=== PATIENT | male | born 1950 | race Caucasian/White ===

== ENCOUNTER → 2021-06-09 10:24 | Outpatient (BNVA) | payer OTHER, SELFPAY | PROVIDERS: Visit Provider Family Medicine | DX: E11.9 Type 2 diabetes mellitus without complications (principal); I10 Essential (primary) hypertension; R35.1 Nocturia; E78.5 Hyperlipidemia, unspecified; J44.9 Chronic obstructive pulmonary disease, unspecified; C61 Malignant neoplasm of prostate | CPT/HCPCS: 80053; 80061; 82043; 84153; 85025 ==

== ENCOUNTER → 2021-06-13 12:11 | Outpatient (BNVA) | payer OTHER, SELFPAY | PROVIDERS: Visit Provider Family Medicine | DX: E11.9 Type 2 diabetes mellitus without complications (principal); I10 Essential (primary) hypertension; R80.9 Proteinuria, unspecified | CPT/HCPCS: 83036; 85025 ==

== ENCOUNTER 2021-06-15 08:54 | Outpatient (CLI) | payer OTHER, SELFPAY ==
[2021-06-15 10:15] LABS: Microalbumin Result 100.2 mg/dL
[2021-06-15 10:24] LABS: Microalbumin 24 Hour Result 2204 mg/24HR (0-30); Microalbumin Total Volume 2200 mL
== END 2021-06-15 08:55 | disposition home or self-care (01) ==
PROVIDERS: PCP Family Medicine; Visit Provider Family Medicine
DX: R80.9 Proteinuria, unspecified (principal)
CPT/HCPCS: 82043

== ENCOUNTER → 2021-09-01 09:29 | Outpatient (BNVA) | payer OTHER, SELFPAY | PROVIDERS: PCP Family Medicine; Visit Provider Family Medicine | DX: E11.9 Type 2 diabetes mellitus without complications (principal); I10 Essential (primary) hypertension; E78.5 Hyperlipidemia, unspecified | CPT/HCPCS: 80048 ==

== ENCOUNTER 2021-09-08 09:07 | Outpatient (CLI) | payer OTHER, SELFPAY ==
--- NOTE | 2021-09-08 10:15 | US_ITS ---
WS: [id number] RENAL ULTRASOUND HISTORY: proteinuria COMPARISON: None available. TECHNIQUE: 2-D and color Doppler imaging of the kidney submitted. Right kidney: 10.6 cm x 4.5 cm x 5.4 cm. Normal echogenicity with no hydronephrosis or mass. Left kidney: 11.1 cm x 5.2 cm x 6.5 cm. Normal size kidney. There is a large exophytic simple cyst from the mid kidney measuring 5.2 x 6.0 x 5.3 cm. No septation or solid component. No solid mass LEFT kidney. No obstruction. Aorta: Normal. Urinary Bladder: Normally distended bladder. No intraluminal filling defect. Very mild lobulation and heterogeneity within the prostate gland. US/US renal BI* [id number] IMPRESSION: 1. No hydronephrosis or solid mass. 2. Large LEFT renal cyst. 3. Minimally heterogeneous prostate gland.
== END 2021-09-08 09:08 | disposition home or self-care (01) ==
PROVIDERS: PCP Family Medicine; Visit Provider Family Medicine
DX: R80.9 Proteinuria, unspecified (principal); N28.1 Cyst of kidney, acquired; N40.0 Benign prostatic hyperplasia without lower urinary tract symptoms
CPT/HCPCS: 76770

== ENCOUNTER → 2021-09-28 11:27 | Outpatient (BNVA) | payer OTHER, SELFPAY | PROVIDERS: PCP Family Medicine; Visit Provider Family Medicine | DX: N18.32 Chronic kidney disease, stage 3b (principal) | CPT/HCPCS: 80048 ==

== ENCOUNTER 2021-12-15 07:53 | Outpatient (CLI) | payer MEDICARE, SELFPAY ==
[2021-12-15 09:26] LABS: Prostate Specific AG Urology 6.52 ng/mL (0-4)
== END 2021-12-15 07:54 | disposition home or self-care (01) ==
PROVIDERS: PCP Family Medicine; Visit Provider Urology
DX: C61 Malignant neoplasm of prostate (principal); N28.1 Cyst of kidney, acquired; R35.1 Nocturia
CPT/HCPCS: 51741; 51798; G0463; 36415; 81003; 84153

== ENCOUNTER → 2022-01-26 10:19 | Outpatient (BNVA) | payer MEDICARE, SELFPAY | PROVIDERS: PCP Family Medicine; Visit Provider Family Medicine | DX: E11.22 Type 2 diabetes mellitus with diabetic chronic kidney disease (principal); N18.32 Chronic kidney disease, stage 3b; I10 Essential (primary) hypertension; K86.89 Other specified diseases of pancreas | CPT/HCPCS: 80053; 83036 ==

== ENCOUNTER 2022-05-10 12:08 | Outpatient (CLI) | payer MEDICARE, SELFPAY ==
[2022-05-10 14:05] LABS: Prostate Specific AG Urology 7.62 ng/mL (0-4)
== END 2022-05-10 12:09 | disposition home or self-care (01) ==
LOC: LAB 12:10
PROVIDERS: PCP Family Medicine; Visit Provider Urology
DX: C61 Malignant neoplasm of prostate (principal)
CPT/HCPCS: 36415; 84153

== ENCOUNTER → 2022-05-16 13:53 | Outpatient (BNVA) | payer MEDICARE, SELFPAY | PROVIDERS: PCP Family Medicine; Visit Provider Urology | DX: C61 Malignant neoplasm of prostate (principal); N28.1 Cyst of kidney, acquired | CPT/HCPCS: 81003; 99213 ==

== ENCOUNTER → 2022-07-27 11:04 | Outpatient (BNVA) | payer MEDICARE, SELFPAY | PROVIDERS: PCP Family Medicine; Visit Provider Family Medicine | DX: I10 Essential (primary) hypertension (principal); E11.22 Type 2 diabetes mellitus with diabetic chronic kidney disease; E78.5 Hyperlipidemia, unspecified; K86.89 Other specified diseases of pancreas; N18.32 Chronic kidney disease, stage 3b; E11.9 Type 2 diabetes mellitus without complications | CPT/HCPCS: 80053; 80061; 82043; 83036; 85025 ==

== ENCOUNTER 2022-08-16 09:04 | Outpatient (CLI) | payer MEDICARE, SELFPAY ==
--- NOTE | 2022-08-16 09:30 | MR_ITS ---
WS: [id number] MRI/MRCP OF THE ABDOMEN WITHOUT GADOLINIUM ENHANCEMENT TECHNIQUE: Coronal T2 Fase BH, Axial T2 Fase BH, Axial T2 FS BH, Zxial 3D Patricio BH, Axial DWI BH, 2D MRCP Radial BH, 3D MRCP (Resp), and Axial 3D Dyn BH Post sequences. CLINICAL INFORMATION: Pancreatic mass COMPARISON: Lung screening CT [address] abdominal imaging. FINDINGS: Some images degraded by breathing artifact. No hydronephrosis in either kidney. Adrenal glands are no rmal. LEFT renal cortical cyst measuring 6.1 x 5.3 cm. Normal caliber abdominal aorta. Celiac and SMA appear patent. Slightly ectatic distal abdominal aorta measuring 2.2 x 1.9 CM. Pancreas is normal in appearance. Normal pancreatic head. No evidence of pancreatic duct dilatation. No evidence of mass or lesion in the pancreas. Liver is normal in appearance. Portal vein and splenic vein appear patent. No intrahepatic biliary duct dilatation. Normal visualized common bile duct. Gal lbladder appears normal. Tiny esophageal hiatal hernia. Normal partially visualized spleen. No adenop athy in the upper abdomen. MR/MR abdomen wo con [id number] Impression: 1. No evidence of mass in the pancreas. No evidence of pancreatic head lesion. No pancreatic ductal dilatation. 2. Normal gallbladder. No intrahepatic biliary duct dilatation. 3. Normal common bile duct. 4. Normal liver. 5. LEFT renal cortical cyst measuring 5.3 x 6.1 CM. 6. No hydronephrosis in either kidney. 7. Slightly ectatic distal abdominal aorta measuring 2.2 x 1.9 cm.
== END 2022-08-16 09:05 | disposition home or self-care (01) ==
LOC: RAD 09:05
PROVIDERS: PCP Family Medicine; Visit Provider Family Medicine
DX: K86.89 Other specified diseases of pancreas (principal)
CPT/HCPCS: 74181

== ENCOUNTER 2022-08-29 12:09 | Outpatient (CLI) | payer MEDICARE, SELFPAY ==
[2022-08-29 13:08] LABS: Prostate Specific AG Urology 9.95 ng/mL (0-4)
== END 2022-08-29 12:10 | disposition home or self-care (01) ==
PROVIDERS: PCP Family Medicine; Visit Provider Urology
DX: R97.20 Elevated prostate specific antigen [PSA] (principal)
CPT/HCPCS: 84153

== ENCOUNTER → 2022-09-07 08:57 | Outpatient (BNVA) | payer MEDICARE, SELFPAY | PROVIDERS: PCP Family Medicine; Visit Provider Urology | DX: C61 Malignant neoplasm of prostate (principal); R97.20 Elevated prostate specific antigen [PSA]; N28.1 Cyst of kidney, acquired | CPT/HCPCS: 99213 ==

== ENCOUNTER 2022-10-16 09:49 | Outpatient (CLI) | payer MEDICARE, SELFPAY ==
[2022-10-16 10:26] LABS: Basophils % 0.6 %; Eosinophils # 0.2 10^3/uL (0.0-0.8); Eosinophils % 2.8 %; Hematocrit 42.4 % (42.0-52.0); Hemoglobin 13.8 g/dL (11.7-16.6); Lymphocytes # 1.9 10^3/uL (0.8-4.8); Lymphocytes % 30.2 %; Mean Corpuscular HGB Conc 32.5 g/dL (30.0-36.0); Mean Corpuscular Volume 92.2 fl (80-94); Mean Platelet Volume 9.8 fL (7.4-10.4); Monocytes # 0.5 10^3/uL (0.2-0.9); Monocytes % 8.2 %; Neutrophils # 3.66 10^3/uL (1.8-7.7); Nucleated Red Blood Cells % 0 %; Platelet Count 234 10^3/cmm (130-400); Red Cell Distribution Width 12.9 % (12.1-15.1); White Blood Count 6.3 10^3/uL (4.0-10.0)
[2022-10-16 10:51] LABS: Parathyroid Hormone 33.3 pg/mL (15-65)
[2022-10-16 10:57] LABS: Creatinine Urine, Random 78 mg/dL (39-259)
[2022-10-16 11:01] LABS: 25 Hydroxy Vitamin D 37 ng/mL (30-100); Albumin Level 4.3 g/dL (3.5-5.2); Anion Gap 17.6 (5-19); Blood Urea Nitrogen 36 mg/dL (8-23); Carbon Dioxide 24 mmol/L (22-29); Chloride 104 mmol/L (98-107); Glomerular Filtration Rate 37.5 mL/min (90-130); Glucose 145 mg/dL (65-115); Phosphorus 3.9 mg/dL (2.5-4.5); Potassium 4.6 mmol/L (3.5-5.1); Sodium 141 mmol/L (136-145)
[2022-10-16 11:09] LABS: Microalbum Creatinine Ratio Ur 487 mg/dL (0-20); Microalbumin Random Urine 38 ug/dL (0-20)
== END 2022-10-16 09:50 | disposition home or self-care (01) ==
PROVIDERS: PCP Family Medicine; Visit Provider Internal Medicine Nephrology
DX: N18.32 Chronic kidney disease, stage 3b (principal); N25.81 Secondary hyperparathyroidism of renal origin
CPT/HCPCS: 36415; 80069; 82044; 82306; 82310; 83970; 85025

== ENCOUNTER → 2023-02-19 09:01 | Outpatient (BNVA) | payer MEDICARE, SELFPAY | PROVIDERS: PCP Family Medicine; Visit Provider Family Medicine | DX: E11.22 Type 2 diabetes mellitus with diabetic chronic kidney disease (principal); N18.32 Chronic kidney disease, stage 3b | CPT/HCPCS: 83036 ==

== ENCOUNTER 2023-04-18 08:13 | Outpatient (CLI) | payer MEDICARE, SELFPAY ==
[2023-04-18 08:45] LABS: Basophils # 0.1 10^3/uL (0.0-0.1); Basophils % 0.8 %; Eosinophils # 0.3 10^3/uL (0.0-0.8); Eosinophils % 4.1 %; Lymphocytes # 1.9 10^3/uL (0.8-4.8); Lymphocytes % 29.7 %; Mean Corpuscular HGB Conc 33.6 g/dL (30-55); Mean Corpuscular Hemoglobin 30.4 pg (27-33); Mean Corpuscular Volume 90.5 fl (82-101); Mean Platelet Volume 10.2 fL (7.4-10.4); Monocytes # 0.7 10^3/uL (0.2-0.9); Monocytes % 10.4 %; Neutrophils % 54.8 %; Nucleated Red Blood Cells % 0 %; Platelet Count 213 10^3/cmm (157-399); Red Blood Count 4.64 10^6/uL (3.85-5.65); Red Cell Distribution Width 13.7 % (12.1-15.1); White Blood Count 6.37 10^3/uL (3.29-11.43)
[2023-04-18 08:50] LABS: Albumin Level 4.4 g/dL (3.5-5.2); Anion Gap 17.3 (5-19); Blood Urea Nitrogen 37 mg/dL (8-23); Calcium 9.2 mg/dL (8.5-10.5); Carbon Dioxide 23 mmol/L (22-29); Chloride 102 mmol/L (98-107); Glomerular Filtration Rate 31.4 mL/min (90-130); Glucose 201 mg/dL (65-115); Phosphorus 4.3 mg/dL (2.5-4.5); Potassium 4.3 mmol/L (3.5-5.1); Sodium 138 mmol/L (136-145)
[2023-04-18 08:54] LABS: Calcium 9.1 mg/dL (8.5-10.5)
[2023-04-18 08:57] LABS: Creatinine Urine, Random 113 mg/dL (39-259); Microalbumin Random Urine 37 ug/dL (0-20)
[2023-04-18 08:58] LABS: Microalbum Creatinine Ratio Ur 327 mg/dL (0-20)
== END 2023-04-18 08:14 | disposition home or self-care (01) ==
LOC: LAB 08:14
PROVIDERS: PCP Family Medicine; Visit Provider Registered Nurse
DX: N18.32 Chronic kidney disease, stage 3b (principal)
CPT/HCPCS: 36415; 80069; 82044; 82310; 83970; 85025

== ENCOUNTER → 2023-08-02 09:51 | Outpatient (BNVA) | payer MEDICARE, SELFPAY | PROVIDERS: PCP Family Medicine; Visit Provider Family Medicine | DX: E11.22 Type 2 diabetes mellitus with diabetic chronic kidney disease (principal); N18.32 Chronic kidney disease, stage 3b; E78.5 Hyperlipidemia, unspecified | CPT/HCPCS: 80048; 80061; 83036 ==

== ENCOUNTER 2023-10-26 10:24 | Outpatient (CLI) | payer MEDICARE, SELFPAY ==
[2023-10-26 11:20] LABS: Basophils % 0.6 %; Eosinophils # 0.1 10^3/uL (0.0-0.8); Eosinophils % 2.6 %; Hematocrit 40.8 % (37-53); Lymphocytes # 1.1 10^3/uL (0.8-4.8); Lymphocytes % 22.2 %; Mean Corpuscular HGB Conc 34.6 g/dL (30-55); Mean Corpuscular Hemoglobin 30.7 pg (27-33); Mean Corpuscular Volume 88.9 fl (82-101); Mean Platelet Volume 9.7 fL (7.4-10.4); Monocytes # 0.7 10^3/uL (0.2-0.9); Neutrophils # 2.97 10^3/uL (1.8-7.7); Neutrophils % 60.4 %; Nucleated Red Blood Cells % 0 %; Platelet Count 230 10^3/cmm (157-399); Red Blood Count 4.59 10^6/uL (3.85-5.65); Red Cell Distribution Width 12.5 % (12.1-15.1); White Blood Count 4.92 10^3/uL (3.29-11.43)
[2023-10-26 11:44] LABS: Albumin Level 4.2 g/dL (3.5-5.2); Anion Gap 18.1 (5-19); Blood Urea Nitrogen 41 mg/dL (8-23); Calcium 8.6 mg/dL (8.5-10.5); Carbon Dioxide 23 mmol/L (22-29); Chloride 101 mmol/L (98-107); Glucose 157 mg/dL (65-115); Phosphorus 4.3 mg/dL (2.5-4.5); Potassium 4.1 mmol/L (3.5-5.1); Sodium 138 mmol/L (136-145)
[2023-10-26 11:48] LABS: Creatinine Urine, Random 62 mg/dL (39-259); Microalbum Creatinine Ratio Ur 323 mg/dL (0-20); Microalbumin Random Urine 20 ug/dL (0-20)
[2023-10-26 11:58] LABS: Calcium 8.5 mg/dL (8.5-10.5)
[2023-10-26 12:05] LABS: Parathyroid Hormone 30.6 pg/mL (15-65)
== END 2023-10-26 10:25 | disposition home or self-care (01) ==
LOC: LAB 10:25
PROVIDERS: PCP Family Medicine; Visit Provider Registered Nurse
DX: N18.32 Chronic kidney disease, stage 3b (principal)
CPT/HCPCS: 36415; 80069; 82044; 82310; 83970; 85025

== ENCOUNTER 2023-11-12 13:20 | Outpatient (CLI) | payer MEDICARE, SELFPAY ==
[2023-11-12 14:00] LABS: Albumin Level 4.1 g/dL (3.5-5.2); Anion Gap 16.4 (5-19); Blood Urea Nitrogen 40 mg/dL (8-23); Calcium 8.8 mg/dL (8.5-10.5); Carbon Dioxide 24 mmol/L (22-29); Chloride 105 mmol/L (98-107); Glucose 186 mg/dL (65-115); Phosphorus 3.6 mg/dL (2.5-4.5); Potassium 4.4 mmol/L (3.5-5.1); Sodium 141 mmol/L (136-145)
== END 2023-11-12 13:21 | disposition home or self-care (01) ==
LOC: LAB 13:23
PROVIDERS: PCP Family Medicine; Visit Provider Family Medicine
DX: N18.32 Chronic kidney disease, stage 3b (principal)
CPT/HCPCS: 80069

== ENCOUNTER 2024-02-01 12:12 | Outpatient (CLI) | payer MEDICARE, SELFPAY ==
[2024-02-01 12:38] LABS: Basophils # 0.1 10^3/uL (0.0-0.1); Basophils % 0.6 %; Eosinophils # 0.1 10^3/uL (0.0-0.8); Eosinophils % 0.9 %; Hematocrit 41.6 % (37-53); Lymphocytes # 1.2 10^3/uL (0.8-4.8); Mean Corpuscular HGB Conc 33.7 g/dL (30-55); Mean Corpuscular Hemoglobin 30.6 pg (27-33); Mean Corpuscular Volume 90.8 fl (82-101); Mean Platelet Volume 9.6 fL (7.4-10.4); Monocytes # 0.5 10^3/uL (0.2-0.9); Neutrophils # 6.61 10^3/uL (1.8-7.7); Nucleated Red Blood Cells % 0 %; Platelet Count 266 10^3/cmm (157-399); Red Blood Count 4.58 10^6/uL (3.85-5.65); Red Cell Distribution Width 13.4 % (12.1-15.1); White Blood Count 8.48 10^3/uL (3.29-11.43)
[2024-02-01 12:59] LABS: Creatinine Urine, Random 121 mg/dL (39-259); Microalbumin Random Urine 39 ug/dL (0-20)
[2024-02-01 13:00] LABS: Microalbum Creatinine Ratio Ur 322 mg/dL (0-20)
[2024-02-01 13:01] LABS: Albumin Level 4.5 g/dL (3.5-5.2); Anion Gap 20.4 (5-19); Blood Urea Nitrogen 48 mg/dL (8-23); Carbon Dioxide 22 mmol/L (22-29); Chloride 100 mmol/L (98-107); Glucose 206 mg/dL (65-115); Phosphorus 3.6 mg/dL (2.5-4.5); Potassium 4.4 mmol/L (3.5-5.1); Sodium 138 mmol/L (136-145)
[2024-02-01 13:03] LABS: Calcium 8.9 mg/dL (8.5-10.5)
[2024-02-01 13:10] LABS: Parathyroid Hormone 73.5 pg/mL (15-65)
[2024-02-01 13:15] LABS: 25 Hydroxy Vitamin D 40 ng/mL (30-100)
== END 2024-02-01 12:13 | disposition home or self-care (01) ==
LOC: LAB 12:16
PROVIDERS: PCP Family Medicine; Visit Provider Internal Medicine
DX: N18.32 Chronic kidney disease, stage 3b (principal)
CPT/HCPCS: 80069; 82044; 82306; 82310; 83970; 85025

== ENCOUNTER 2024-06-03 09:11 | Outpatient (CLI) | payer MEDICARE, SELFPAY ==
[2024-06-03 09:50] LABS: Basophils # 0.1 10^3/uL (0.0-0.1); Basophils % 0.8 %; Eosinophils # 0.1 10^3/uL (0.0-0.8); Eosinophils % 2.3 %; Hematocrit 42.9 % (37-53); Lymphocytes # 1.2 10^3/uL (0.8-4.8); Lymphocytes % 19.7 %; Mean Corpuscular HGB Conc 32.6 g/dL (30-55); Mean Corpuscular Hemoglobin 29.7 pg (27-33); Mean Corpuscular Volume 91.1 fl (82-101); Mean Platelet Volume 10.2 fL (7.4-10.4); Monocytes # 0.6 10^3/uL (0.2-0.9); Monocytes % 9.1 %; Neutrophils # 4.16 10^3/uL (1.8-7.7); Neutrophils % 67.8 %; Nucleated Red Blood Cells % 0 %; Platelet Count 220 10^3/cmm (157-399); Red Blood Count 4.71 10^6/uL (3.85-5.65); Red Cell Distribution Width 13.1 % (12.1-15.1); White Blood Count 6.14 10^3/uL (3.29-11.43)
[2024-06-03 10:13] LABS: Creatinine Urine, Random 90 mg/dL (39-259); Microalbumin Random Urine 33 ug/dL (0-20)
[2024-06-03 10:15] LABS: Microalbum Creatinine Ratio Ur 367 mg/dL (0-20)
[2024-06-03 10:25] LABS: Calcium 9.1 mg/dL (8.5-10.5); Parathyroid Hormone 52.3 pg/mL (15-65)
[2024-06-03 10:35] LABS: 25 Hydroxy Vitamin D 29 ng/mL (30-100); Albumin Level 4.1 g/dL (3.5-5.2); Blood Urea Nitrogen 43 mg/dL (8-23); Carbon Dioxide 22 mmol/L (22-29); Chloride 102 mmol/L (98-107); Glucose 184 mg/dL (65-115); Phosphorus 4.2 mg/dL (2.5-4.5); Sodium 136 mmol/L (136-145)
[2024-06-03 10:42] LABS: Anion Gap 16.4 (5-19); Potassium 4.4 mmol/L (3.5-5.1)
== END 2024-06-03 09:12 | disposition home or self-care (01) ==
PROVIDERS: PCP Family Medicine; Visit Provider Internal Medicine
DX: N18.32 Chronic kidney disease, stage 3b (principal)
CPT/HCPCS: 36415; 80069; 82044; 82306; 82310; 83970; 85025

== ENCOUNTER 2024-06-18 08:14 | Inpatient (IN) | payer OTHER, MEDICARE, SELFPAY ==
[2024-06-18] VITALS (15 sets, daily range): BP systolic 134–163; BP diastolic 82–96; PULSE 82–101; RESP 16–18; TEMP 36.6–36.9; O2SAT 94–98; BMI 25.1
--- NOTE | 2024-06-18 08:18 | ECG_ITS ---
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 Measurements Intervals [place] Rate: 89 P: 71 AR: 178 QRS: 70 QRSD: 138 T: 38 QT: 380 QTc: 462 Interpretive Statements SINUS RHYTHM RIGHT BUNDLE BRANCH BLOCK [120+ ms QRS DURATION, UPRIGHT V1, 40+ ms S IN I/aVL/V4/V5/V6] No previous ECG available for comparison Electronically Signed On 06-21-2024 23:14:40 ELEVATOR TENDER by Kevan Jaime M.D. [id number]
--- NOTE | 2024-06-18 08:18 | CT_ITS ---
WS: [id number] CT HEAD NONCONTRAST HISTORY: Symptoms of acute stroke TECHNIQUE: Contiguous axial imaging performed through the brain. Bone and soft tissue windows. Sagitt al and coronal reformats reviewed. All CT scans at [facility] use at least one of these dose optimization techniques: automated exposure control; mA and/or kV adjustment per patient size (includ es targeted exams where dose is matched to clinical indication); or iterative reconstruction. DLP: 1087.79 mGy COMPARISON: None available. No acute intracranial hemorrhage, midline shift or mass effect. Large subacute to remote infarct in the LEFT occipital lobe. Mild mass effect and edema and effacemen t of the adjacent sulci suggesting this is likely a subacute stroke. Additional area of decreased att enuation in the RIGHT temporal lobe. Moderate bilateral cerebral atrophy. Ventricles: No ventriculomegaly. Mild effacement LEFT lateral ventricle occipital horn due to the adj acent subacute infarct. No inferior displacement of the cerebellar tonsils. Paranasal sinuses: As visualized are clear. Mastoid air cells: Well pneumatized. Calvarium and scalp: Skull is intact with no soft tissue edema or swelling. CT/CT head thrombolytic [id number] IMPRESSION: 1. No acute intracranial hemorrhage or edema. 2. Findings most consistent with a large subacute infarct involving the LEFT o ccipital lobe. 3. Focal decreased attenuation RIGHT temporal lobe may be small vessel disease or prior infarct. 4. Otherwise mild cerebral atrophy and small vessel disease. Notified Evans Frey DO at 06/18/2024 9:04 AM.
--- NOTE | 2024-06-18 08:21 | ED_ITS ---
HPI - Neuro Symptoms/Deficit 2 General: Chief Complaint: Neuro Symptoms/Deficit Stated Complaint: poss stroke Time Seen by Provider: 06/18/24 08:17 History of Present Illness: 74-year-old male presents emergency room 48 hours after onset of blurred vision weakness and some visual receptive aphasia. Initially began 2 days ago. It is persistent he is also difficulty with word finding and with some confusion. He has not any difficulty with gait or swallowing. Associated symptoms: Deny chest pain Related Data Home Medications Medication Instructions Recorded Confirmed aspirin 81 mg tablet,delayed 81 mg PO DAILY 06/09/21 06/18/24 release albuterol sulfate 90 mcg/actuation 2 inh inhalation Q4H PRN Shortness 06/18/24 06/18/24 breath activated powder inhaler Of Breath Or Wheezing amlodipine 10 mg tablet 10 mg PO DAILY 06/18/24 06/18/24 atorvastatin 40 mg tablet 40 mg PO QPM 06/18/24 06/18/24 empagliflozin 25 mg tablet 25 mg PO DAILY 06/18/24 06/18/24 glimepiride 4 mg tablet 4 mg PO QAM 06/18/24 06/18/24 hydrochlorothiazide 25 mg tablet 25 mg PO DAILY 06/18/24 06/18/24 sitagliptin 50 mg tablet (Zituvio) 50 mg PO DAILY 06/18/24 06/18/24 tiotropium bromide 2.5 2 puff inhalation DAILY 06/18/24 06/18/24 mcg/actuation mist for inhalation (Spiriva Respimat) Previous Rx's Medication Instructions Recorded blood sugar diagnostic (Blood #50 ea 07/27/22 Glucose Test strips) blood-glucose meter #1 ea 07/27/22 lancets 25 gauge #100 ea 07/27/22 losartan 50 mg tablet 50 mg PO DAILY #90 tabs 08/02/23 linagliptin 5 mg tablet (Tradjenta) 5 mg PO QAM #100 tabs 08/17/23 clopidogrel 75 mg tablet 75 mg PO DAILY #30 tabs 06/19/24 Allergies Allergy/AdvReac Type Severity Reaction Status Date / Time azithromycin Allergy Severe ALGY-Swell Verified 11/09/23 09:03 Lip/Tongue/Throat Fish Containing Products Allergy Mild ALGY-Swell Verified 11/09/23 09:03 Lip/Tongue/Throat Penicillins Allergy Mild ALGY-Hives Verified 11/09/23 09:03 Review of Systems 2 Const: Denies: fever(s) or chills Card: Denies: chest pain Resp: Denies: dyspnea GI: Denies: abdominal pain : Denies: dysuria, urinary frequency or urinary urgency Musc: Denies: neck pain or back pain Skin/Breast: Denies: rash PFSH ED 2 PFSH: Medical History Secondary hyperparathyroidism (of renal origin) Renal cyst Left lower pole. Almost 6 cm. Benign simple characteristics. No further work-up indicated Pancreatic mass Stage 3b chronic kidney disease (CKD) Dyslipidemia Prostate cancer Type 2 diabetes mellitus COPD (chronic obstructive pulmonary disease) Benign essential HTN Surgical History History of surgical removal of skin lesion Family History Mother , AT AGE 69 Thyroid disease Father , AT AGE 65 Cancer lung Social History Smoking and tobacco/nicotine status: former use of tobacco/nicotine Quit status (tobacco/nicotine): has quit using Second hand smoke exposure: Yes Alcohol intake: current Alcohol intake frequency: few times a week Substance/Drug Use: never Marital status: Life Partner Current occupational status: retired NIH stroke score 2 NIHSS: Level Of Consciousness - 1a: 0 Level Of Consciousness Questions - 1b: Both Correct Level Of Consciousness Commands - 1c: Both Correct Best Gaze - 2: Normal Visual Mckeon - 3: Complete Hemianopia Facial Palsy - 4: Normal Motor Arm Right - 5: No Drift Motor Arm Left - 5: No Drift Motor Leg Right - 6: No Drift Motor Leg Left - 6: No Drift Limb Ataxia - 7: A bsent Sensory - 8: Normal Best Language - 9: No Aphasia Dysarthia - 10: Normal Extinction And Inattention - 11: 0 Score: Total Score: 2 Physical Exam 2 Const: GENERAL APPEARANCE: cooperative ORIENTATION/CONSCIOUSNESS: Yes awake, Yes oriented to person, Yes oriented to place and Yes oriented to time HENMT: COMMON NORMALS: normocephalic, atraumatic and hearing grossly normal bilaterally HEAD & SCALP: normocephalic and atraumatic Resp: COMMON NORMALS: normal respiratory effort, No retractions, No use of accessory muscles and clear to auscultation bilaterally AUSCULTATION: clear to auscultation bilaterally Cardio: COMMON NORMALS: regular rate, regular rhythm and No murmurs present (Cardio) RATE: regular rate RHYTHM: regular rhythm GI: COMMON NORMALS: Soft to palpation and No hepatosplenomegaly present A USCULTATION: Yes normoactive bowel sounds PALPATION: Yes Soft to palpation, No Tenderness to palpation present (GI), No Guarding due to palpation present (GI) and Yes No hepatosplenomegaly present Extremity: COMMON NORMALS: normal to inspection, capillary refill normal, no clubbing, cyanosis or edema, no calf tenderness and no pedal edema Neuro: SENSORIUM/ORIENTATION: Yes oriented to person, Yes oriented to place and Yes oriented to time Skin: COMMON NORMALS: no rashes or lesions noted GENERAL SKIN EXAM: no rashes or lesions noted Course 2 Vital Signs: Vital signs: Vital Signs Temperature 98.5 F 06/19/24 12:40 Pulse Rate 86 06/19/24 12:40 Respiratory Rate 17 06/19/24 12:40 Blood Pressure 161/88 06/19/24 12:40 Pulse Oximetry 94 06/19/24 12:40 Oxygen Delivery Me thod Room Air 06/19/24 11:31 MDM - Neuro Symptoms/Deficit Medical Decision Making Patient has subacute stroke in the left occipital region consistent with a posterior cervical cerebral artery. He has no other symptoms for the most part he has no ataxia has not had any vomiting. There is an area in the right parietal lesion that is questionable. Will admit the patient with Dr. Stubbs for further evaluation. Unfortunately is not a candidate for thrombolytics or embolectomy because of the presenting time. Did not do any further imaging in the emergency room because he is outside the timeframe with his kidney function at creatinine of 2.4 his probably going to need MRI without contrast. Medical Records I reviewed the patient's medical records. Lab Data I reviewed the patient's lab results. 06/18/24 08:23 06/19/24 06:[address] 06/18/24 08:18 IMPRESSION: 1. No acute intracranial hemorrhage or edema. 2. Findings most consistent with a large subacute infarct involving the LEFT occipital lobe. 3. Focal decreased attenuation RIGHT temporal lobe may be small vessel disease or prior infarct. 4. Otherwise mild cerebral atrophy and small vessel disease. Notified Evans Frey DO at 06/18/2024 9:04 AM. Head MRI 06/18/24 13:21 IMPRESSION: 1. Restricted diffusion in the parasagittal temporal lobe involving the cortex and LEFT posterior temporal and occipital lobes most compatible with acute to subacute ischemia. Recommend interval follow-up to assess evolution 2. No hemosiderin. 3. Mild localized mass effect on the LEFT temporal horn and LEFT occipital horn. No hydrocephalus. 4. No other acute findings. Laboratory Results WBC 8.43 10^3/uL (3.29-11.43) 06/18/24 08:23 RBC 5.10 10^6/uL (3.85-5.65) 06/18/24 08:23 Hgb 15.50 g/dL (11.27-16.99) 06/18/24 08:23 Hct 48.1 % (37-53) 06/18/24 08:23 MCV 94.3 fl (82-101) 06/18/24 08:23 MCH 30.4 pg (27-33) 06/18/24 08:23 MCHC 32.2 g/dL (30-55) 06/18/24 08:23 RDW 12.9 % (12.1-15.1) 06/18/24 08:23 Plt Count 277 10^3/cmm (157-399) 06/18/24 08:23 MPV 11.2 fL (7.4-10.4) H 06/18/24 08:23 Neut % (Auto) 69.5 % 06/18/24 08:23 Lymph % (Auto) 18.6 % 06/18/24 08:23 Gooding % (Auto) 9.7 % 06/18/24 08:23 Eos % (Auto) 1.4 % 06/18/24 08:23 Baso % (Auto) 0.6 % 06/18/24 08:23 Neut # (Auto) 5.85 10^3/uL (1.8-7.7) 06/18/24 08:23 Lymph # (Auto) 1.6 10^3/uL (0.8-4.8) 06/18/24 08:23 Gooding # (Auto) 0.8 10^3/uL (0.2-0.9) 06/18/24 08:23 Eos # (Auto) 0.1 10^3/uL (0.0-0.8) 06/18/24 08:23 Baso # (Auto) 0.1 10^3/uL (0.0-0.1) 06/18/24 08:23 Nucleated RBC % (auto) 0 % 06/18/24 08:23 Nucleated RBCs # 0.0 /100WBC 06/18/24 08:23 PT 12.00 SECONDS (12.1-14.9) L 06/18/24 09:12 INR 0.83 (0.8-1.2) 06/18/24 09:12 APTT 23.3 SECONDS (23.9-36.7) L 06/18/24 09:12 Sodium 136 mmol/L (136-145) 06/18/24 08:54 Potassium 4.3 mmol/L (3.5-5.1) 06/18/24 08:54 Chloride 100 mmol/L (98-107) 06/18/24 08:54 Carbon Dioxide 21 mmol/L (22-29) L 06/18/24 08:54 Anion Gap 19.3 (5-19) H 06/18/24 08:54 BUN 38 mg/dL (8-23) H 06/18/24 08:54 Creatinine 2.4 mg/dL (0.7-1.2) H 06/18/24 08:54 GFR Calculation Not Reportable 06/18/24 08:54 Glucose 191 mg/dL (65-115) H 06/18/24 08:54 POC Glucose 179 mg/dL (70-110) H 06/18/24 08:19 Calculated Osmolality 296 mOsm/kg (285-295) H 06/18/24 08:54 Calcium 9.0 mg/dL (8.5-10.5) 06/18/24 08:54 Total Bilirubin 0.4 mg/dL (0.15-1.2) 06/18/24 08:54 AST 14 U/L (0-40) 06/18/24 08:54 ALT 12 U/L (0-41) 06/18/24 08:54 Alkaline Phosphatase 50 U/L (40-130) 06/18/24 08:54 Total Protein 7.0 g/dL (6.6-8.7) 06/18/24 08:54 Albumin 4.0 g/dL (3.5-5.2) 06/18/24 08:54 Globulin 3.0 g/dL (1.3-4.6) 06/18/24 08:54 Urine Color Yellow (Yellow) 06/18/24 09:11 Urine Appearance Clear (CLEAR) 06/18/24 09:11 Urine pH 5.0 (5-7) 06/18/24 09:11 Ur Specific Antonito 1.023 (1.005-1.030) 06/18/24 09:11 Urine Protein 2+ (Negative) A 06/18/24 09:11 Urine Glucose (UA) 3+ (Normal) H 06/18/24 09:11 Urine Ketones Negative (Negative) 06/18/24 09:11 Urine Blood Negative (Negative) 06/18/24 09:11 Urine Nitrate Negative (Negative) 06/18/24 09:11 Urine Bilirubin Negative (Negative) 06/18/24 09:11 Urine Urobilinogen 0.2 mg/dL (Negative) 06/18/24 09:11 Ur Leukocyte Esterase Negative (Negative) 06/18/24 09:11 Urine RBC 0-2 /hpf (0-2) 06/18/24 09:11 Urine WBC 0-5 /hpf (0-5) 06/18/24 09:11 Ur Squamous Epith Cells 0-5 /hpf (0-5) 06/18/24 09:11 Amorphous Sediment Not Reportable 06/18/24 09:11 Urine Bacteria None seen /hpf (NONE) 06/18/24 09:11 Hyaline Casts 2.87 /lpf 06/18/24 09:11 Urine Opiates Screen Negative ng/mL (Negative) 06/18/24 09:11 Ur Barbiturates Screen Negative ng/mL (Negative) 06/18/24 09:11 Ur Phencyclidine Scrn Negative ng/mL (Negative) 06/18/24 09:11 Ur Amphetamines Screen Negative ng/mL (Negative) 06/18/24 09:11 U Benzodiazepines Scrn Negative ng/mL (Negative) 06/18/24 09:11 Urine Cocaine Screen Negative ng/mL (Negative) 06/18/24 09:11 U Marijuana (THC) Screen Positive ng/mL (Negative) H 06/18/24 09:11 All radiology interpretation(s) finalized by discharge Discharge Plan Discharge Patient Disposition: Admitted As Inpatient Admit Provider: Marc Stubbs Clinical Impression: Cerebrovascular accident Condition: Stable Discharge Diet: Cardiac and Diabetic Discharge Activity: Resume usual activity and Increase activity as tolerated Coding Level of Care Code ED Field Services Manager for Sarah Villalpando
[2024-06-18 08:25] LABS: Glucose Point of Care 179 mg/dL (70-110)
[2024-06-18 08:30] LABS: Basophils # 0.1 10^3/uL (0.0-0.1); Basophils % 0.6 %; Eosinophils # 0.1 10^3/uL (0.0-0.8); Eosinophils % 1.4 %; Hematocrit 48.1 % (37-53); Lymphocytes # 1.6 10^3/uL (0.8-4.8); Lymphocytes % 18.6 %; Mean Corpuscular HGB Conc 32.2 g/dL (30-55); Mean Corpuscular Hemoglobin 30.4 pg (27-33); Mean Corpuscular Volume 94.3 fl (82-101); Mean Platelet Volume 11.2 fL (7.4-10.4); Monocytes # 0.8 10^3/uL (0.2-0.9); Monocytes % 9.7 %; Neutrophils # 5.85 10^3/uL (1.8-7.7); Neutrophils % 69.5 %; Nucleated Red Blood Cells % 0 %; Platelet Count 277 10^3/cmm (157-399); Red Cell Distribution Width 12.9 % (12.1-15.1); White Blood Count 8.43 10^3/uL (3.29-11.43)
[2024-06-18 09:21] LABS: Bilirubin Urine Negative (Negative); Blood Urine Negative (Negative); Glucose Urine UA 3+ (Normal); Ketones Urine Negative (Negative); Leukocyte Esterase Urine Negative (Negative); Nitrate Urine Negative (Negative); Protein Urine 2+ (Negative); Specific Gravity, Urine 1.023 (1.005-1.030); Urine Appearance Clear (CLEAR); Urine Color Yellow (Yellow); Urobilinogen Urine 0.2 mg/dL (Negative)
[2024-06-18 09:26] LABS: Add Urine Microscopic? YES; Bacteria Urine None Seen /hpf; Hyaline Casts Urine 2.87 /lpf; RBC Urine 0-2 /hpf (0-2); Squamous Epithelial Cell Urine 0-5 /hpf (0-5); WBC Urine 0-5 /hpf (0-5)
[2024-06-18 09:27] LABS: Amphetamines Screen Urine Negative (Negative); Barbiturates Screen Urine Negative (Negative); Benzodiazepines Screen Urine Negative (Negative); Cocaine Screen Urine Negative (Negative); Opiate Screen Urine Negative (Negative); PCP Screen Urine Negative (Negative); THC Screen Urine Positive (Negative)
[2024-06-18 09:33] LABS: INR 0.83 (0.8-1.2); Partial Thromboplastin Time 23.3 SECONDS (23.9-36.7)
[2024-06-18 09:35] LABS: Alanine Aminotransferase 12 U/L (0-41); Alkaline Phosphatase 50 U/L (40-130); Blood Urea Nitrogen 38 mg/dL (8-23); Carbon Dioxide 21 mmol/L (22-29); Chloride 100 mmol/L (98-107); Creatinine Clr Calc Pharmacy 32.2451; Glucose 191 mg/dL (65-115); Osmolality Calculated 296 mOsm/kg (285-295); Sodium 136 mmol/L (136-145); Total Bilirubin 0.4 mg/dL (0.15-1.2)
[2024-06-18 09:39] LABS: Anion Gap 19.3 (5-19); Aspartate Amino Transferase 14 U/L (0-40); Potassium 4.3 mmol/L (3.5-5.1)
--- NOTE | 2024-06-18 12:49 | PM.HP ---
Providers/Chief Complaint Admitting Physician: Marc Stubbs Primary Care Provider: Chica Zhao MD Chief Complaint: poss stroke History of Present Illness Very pleasant 74-year-old gentleman with history of diabetes on oral hypoglycemic, hypertension, former smoker, HLD, CKD, COPD, prostate cancer, noticed difficulty with his vision over the last 2 days and some difficulty with communicating. Denies any numbness or weakness on any 1 side of the body. Denies vertigo. Denies difficulty walking. In ER CT of the head did not show any acute intracranial hemorrhage or edema, findings most consistent with large subacute infarct involving left occipital lobe. Focal decreased sensation right temporal lobe possibly small vessel disease or prior infarct. Mild cerebral atrophy and small vessel disease. Review of Systems Const: Denies: fever(s), chills, body aches or malaise ENMT: Denies: throat pain Card: Denies: chest pain, edema, pre-syncope or dyspnea on exertion Resp: Denies: dyspnea, productive cough, change in phlegm color or hemoptysis GI: Denies: abdominal pain, nausea, vomiting, diarrhea, constipation, hematochezia or melena : Denies: flank pain, difficulty urinating, urinary frequency or hematuria Musc: Denies: back pain, joint swelling or joint redness Skin/Breast: Denies: rash or new lesions Neuro: Reports: difficulty communicating thoughts and other (Vision limitation); Denies: headache(s), numbness in extremities, weakness in extremities, lack of coordination, difficulty walking or vertigo Medications/Allergies Home Medications Medication Instructions Recorded Confirmed Last Taken Type aspirin 81 mg tablet,delayed 81 mg PO DAILY 06/09/21 06/18/24 Unknown History release blood sugar diagnostic (Blood #50 ea 07/27/22 06/18/24 Unknown Rx Glucose Test strips) blood-glucose meter #1 ea 07/27/22 06/18/24 Unknown Rx lancets 25 gauge #100 ea 07/27/22 06/18/24 Unknown Rx losartan 50 mg tablet 50 mg PO DAILY #90 tabs 08/02/23 06/18/24 Unknown Rx linagliptin 5 mg tablet (Tradjenta) 5 mg PO QAM #100 tabs 08/17/23 06/18/24 Unknown Rx albuterol sulfate 90 mcg/actuation 2 inh inhalation Q4H PRN Shortness 06/18/24 06/18/24 Unknown History breath activated powder inhaler Of Breath Or Wheezing amlodipine 10 mg tablet 10 mg PO DAILY 06/18/24 06/18/24 Unknown History atorvastatin 40 mg tablet 40 mg PO QPM 06/18/24 06/18/24 Unknown History empagliflozin 25 mg tablet 25 mg PO DAILY 06/18/24 06/18/24 Unknown History glimepiride 4 mg tablet 4 mg PO QAM 06/18/24 06/18/24 Unknown History hydrochlorothiazide 25 mg tablet 25 mg PO DAILY 06/18/24 06/18/24 Unknown History sitagliptin 50 mg tablet (Zituvio) 50 mg PO DAILY 06/18/24 06/18/24 Unknown History tiotropium bromide 2.5 2 puff inhalation DAILY 06/18/24 06/18/24 Unknown History mcg/actuation mist for inhalation (Spiriva Respimat) Allergies Allergy/AdvReac Type Severity Reaction Status Date / Time azithromycin Allergy Severe ALGY-Swell Verified 11/09/23 09:03 Lip/Tongue/Throat Fish Containing Products Allergy Mild ALGY-Swell Verified 11/09/23 09:03 Lip/Tongue/Throat Penicillins Allergy Mild ALGY-Hives Verified 11/09/23 09:03 PFSH Acute PFSH: Medical History Secondary hyperparathyroidism (of renal origin) Renal cyst Left lower pole. Almost 6 cm. Benign simple characteristics. No further work-up indicated Pancreatic mass Stage 3b chronic kidney disease (CKD) Dyslipidemia Prostate cancer Type 2 diabetes mellitus COPD (chronic obstructive pulmonary disease) Benign essential HTN Surgical History History of surgical removal of skin lesion Family History Mother , AT AGE 69 Thyroid disease Father , AT AGE 65 Cancer lung Social History Smoking and tobacco/nicotine status: former use of tobacco/nicotine Quit status (tobacco/nicotine): has quit using Second hand smoke exposure: Yes Alcohol intake: current Alcohol intake frequency: few times a week Substance/Drug Use: never Marital status: Life Partner Current occupational status: retired Vitals/I&O/Wt Last Vital Signs Temp 97.8 F 06/18/24 08:18 Pulse 97 06/18/24 12:01 Resp 16 06/18/24 11:16 BP 134/86 06/18/24 12:01 Pulse Ox 97 06/18/24 12:01 O2 Del Method Room Air 06/18/24 11:16 Weight last 48 hrs Weight 88.451 kg Physical Exam Const: COMMON NORMALS: patient oriented x3 and alert GENERAL APPEARANCE: cooperative ORIENTATION/CONSCIOUSNESS: Yes awake HENMT: COMMON NORMALS: oropharynx normal Neck/C-Spine: COMMON NORMALS: no JVD Resp: COMMON NORMALS: normal respiratory effort and clear to auscultation bilaterally AUSCULTATION: clear to auscultation bilaterally Cardio: COMMON NORMALS: no JVD, regular rhythm, S1 normal heart sound present, S2 normal heart sound present and No murmurs present (Cardio) RHYTHM: regular rhythm HEART SOUNDS: S1 normal heart sound present and S2 normal heart sound present GI: COMMON NORMALS: Normal to inspection, nondistended, normoactive bowel sounds present, Soft to palpation and non-tender PALPATION: Yes Soft to palpation Extremity: COMMON NORMALS: no joint enlargement and no pedal edema Neuro: COMMON NORMALS: patient oriented x3 and moves all extremities SENSORIUM/ORIENTATION: Yes alert OTHER: He is awake and alert, following directions readily. Without facial droop, no dysarthria. Minimal if any aphasia. No difficulty with tracking resultantly. Visual agosto appear intact but with right side neglect. No upper or lower extremity drift. Sensory exam symmetrical to light touch and temperature. No sensory extinction. FNF intact. Skin: COMMON NORMALS: no rashes or lesions noted GENERAL SKIN EXAM: no rashes or lesions noted Data 06/18/24 08:23 06/18/24 08:54 A&P Assessment and plan (1) Cerebrovascular accident: Subacute CVA of left occipital lobe suspected as most likely finding on the CT of the head, with presentation with some blurred vision, finding of right-sided visual extinction and gentleman going on for the past 2 days, additionally focal decreased attenuation right temporal lobe possibly small vessel disease or prior infarct noted on CT. reviewed vitals, CBC, INR, CMP, UA, UDS, head CT, EKG, ER provider note, discussed with ER provider. He is outside the window for tPA or endovascular intervention. With elevated ABCD squared score. Discussed with him continuation of aspirin, for now we will increase up to 162 mg. Discussed with him also additional of Plavix for 21 days. Continue statin. Discussed with him additional assessment with carotid ultrasound, echo bubble study. CT findings most consistent with CVA, although he does have prostate cancer, as per discussion of ER physician with radiology follow-up additional study with noncontrast MRI. Requested. Discussed with him underlying risk factors including diabetes, hypertension, continue to monitor glucose, blood pressures. Permissive hypertension for now, hold HCTZ, losartan, amlodipine for now. Monitor blood pressures. Monitor blood glucose. Consult carbohydrate diet. Denies history of atrial fibrillation or irregular heartbeat, palpitations, will monitor on telemetry. Sliding scale insulin. PT, OT, ST assessment. Follow-up with neurology after discharge. (2) Type 2 diabetes mellitus: Monitor POC glucose. Consistent carbohydrate diet. Sliding scale insulin. Qualifiers: Chronic kidney disease stage: stage 3 (moderate) Chronic kidney disease stage 3 subtype: stage 3b (GFR 30-44) Diabetes mellitus complication detail: with chronic kidney disease Diabetes mellitus complication status: with kidney complications Diabetes mellitus senior care insulin use: without senior care use Qualified Code(s): E11.22 - Type 2 diabetes mellitus with diabetic chronic kidney disease; N18.32 - Chronic kidney disease, stage 3b (3) Benign essential HTN: Hold antihypertensives for now. Permissive hypertension for now. Monitor blood pressures. (4) Stage 3b chronic kidney disease (CKD): Monitor kidney function. Follow-up with primary provider. (5) Prostate cancer: Plan Former smoker, HLD, continue statin COPD, not in exacerbation. Kiara Attestations Medical Necessity Statement*: Admission over 2 midnights anticipated for assessment and management of ischemic stroke in a gentleman with prostate cancer. and High MDM includes amount and/or complexity of data reviewed/ordered [ previous or external records, resulted lab(s)/test(s), ordered lab(s)/test(s) and other healthcare professional discussion] as documented Diagnoses Cerebrovascular accident I63.9 Type 2 diabetes mellitus with stage 3b chronic kidney disease, without long-term current use of insulin E11.22; N18.32 Chronic kidney disease stage: stage 3 (moderate) Chronic kidney disease stage 3 subtype: stage 3b (GFR 30-44) Diabetes mellitus complication detail: with chronic kidney disease Diabetes mellitus complication status: with kidney complications Diabetes mellitus terminal press operator insulin use: without senior care use Benign essential HTN I10 Stage 3b chronic kidney disease (CKD) N18.32 Prostate cancer C61
--- NOTE | 2024-06-18 13:21 | MR_ITS ---
WS: [id number] MRI HEAD WITHOUT CONTRAST TECHNIQUE: Sagittal T1, T2 axial, T2 axial FLAIR, axial and coronal T1 images, axial susceptibility w eighted imaging, axial diffusion weighted images, and coronal T2 images were obtained. CLINICAL INFORMATION: cva, prostate cancer COMPARISON: CT 06/18/2024 FINDINGS: Restricted diffusion in the LEFT parasagittal temporal lobe extending into the parahippocampal gyrus. T2 signal normality extends into the LEFT occipital and posterior parasagittal temporal lobe. Findin gs compatible with acute to subacute LEFT COMPUTER TECH territory infarct. Mild associated localized mass effec t. Mild mass effect on the LEFT occipital and temporal horns. No hemosiderin. No hydrocephalus. No ot her foci of acute ischemia. Minimal small vessel changes. Moderate parenchymal volume loss. Normal posterior fossa. Normal vascul ar flow voids at the skull base. No extra-axial fluid collections. Paranasal sinuses and mastoid air cells are well aerated. Normal optic chiasm and pituitary infundibulum. MR/MR head wo con* [id number] IMPRESSION: 1. Restricted diffusion in the parasagittal temporal lobe involving the cortex and LEFT posterior temporal and occipital lobes most compatible with acute to subacute ischemia. Recommend interval follow-up to assess evolution 2. No hemosiderin. 3. Mild localized mass effect on the LEFT temporal horn and LEFT occipital hor n. No hydrocephalus. 4. No other acute findings.
--- NOTE | 2024-06-18 13:21 | USCV_ITS ---
Jung Last Age: 74 Gender: M : 1950 Exam Date: 06/18/2024 14:33 Ordering Phys: Marc Stubbs MD Technologist: [place] [facility] [place]: cva BP: 120 / 70 HR: 92 Rhythm: Sinus Technical Quality: Adequate MEASUREMENTS (Male / Female) Normal Values 2D ECHO LV Diastolic Diameter PLAX 4.0 cm 4.2 - 5.9 / 3.9 - 5.3 cm IVS Diastolic Thickness 1.3 cm 0.6 - 1.0 / 0.6 - 0.9 cm IVS Systolic Thickness 1.9 cm LVPW Diastolic Thickness 1.5 cm 0.6 - 1.0 / 0.6 - 0.9 cm LVPW Systolic Thickness 1.5 cm LVOT Diameter 2.0 cm LV Ejection Fraction 2D Teich 63.7 % LV Ejection Fraction MOD 4C 70.0 % LV Ejection Fraction MOD 2C 68.9 % LV Ejection Fraction 2C AL 68.2 % LA Diameter 2.9 cm RA Systolic Volume 4C AL 42.1 ml RA Systolic Volume 4C MOD 42.2 ml Aorta at Sinotubular Diameter 3.1 cm M-MODE LA Ao Ratio MM 1.4 AV Cusp Separation MM 1.5 cm DOPPLER AV Peak Velocity 269.3 cm/s LVOT Peak Velocity 103.0 cm/s AV Area Cont Eq vti 1.6 cm squared AV Area Cont Eq pk 1.2 cm squared MV Peak Velocity 191.0 cm/s MV Area PHT 7.5 cm squared Mitral E to A Ratio 0.5 TV Peak Velocity 213.5 cm/s TR Peak Velocity 271.0 cm/s TR Peak Gradient 29.4 mmHg TV Peak E Velocity 95.0 cm/s PV Peak Velocity 101.0 cm/s FINDINGS Left Ventricle Normal left ventricular size, systolic function and wall thickness, with no regional wall motion abnormalities. Left ventricular ejection fraction is estimated at 60%. Grade I/IV diastolic dysfunction (abnormal relaxation filling pattern), normal to mildly elevated filling pressures. Right Ventricle The right ventricle is normal in size and function. Right Atrium The right atrium is normal in size. Left Atrium The left atrium is normal in size. Mitral Valve Moderately thickened mitral valve. Moderate mitral annular calcification. No mitral valve stenosis. Trace mitral valve regurgitation. Aortic Valve Severe aortic valve calcification. Moderate aortic valve stenosis, mean gradient 12.4 mmHg, BRAEDEN 1.6 cm squared. Trace aortic valve regurgitation. Tricuspid Valve Structurally normal tricuspid valve without significant stenosis or regurgitation. Pulmonary artery systolic pressure is normal. Pulmonic Valve Structurally normal pulmonic valve without significant stenosis. There is no pulmonic regurgitation. Pericardium Normal pericardium without effusion. Aorta Normal ascending aorta dimension. IVC The inferior vena cava appears normal. CONCLUSIONS Normal left ventricular size, systolic function and wall thickness, with no regional wall motion abnormalities. Left ventricular ejection fraction is estimated at 60%. Grade I/IV diastolic dysfunction (abnormal relaxation filling pattern), normal to mildly elevated filling pressures. Severe aortic valve calcification. Moderate aortic valve stenosis, mean gradient 12.4 mmHg, BRAEDEN 1.6 cm squared. Trace aortic valve regurgitation. There is no pericardial effusion. Right atrial pressure is around 5 mm of mercury. Leora Alvarenga MD (Electronically Signed) Final Date: 19 June 2024 09:57 S
[2024-06-18] MEDS: enoxaparin 40 mg/0.4 mL Syringe SUBCUT (14:56)
[2024-06-18] MEDS: clopidogrel 75 mg Tablet PO (14:57)
[2024-06-18 16:02] LABS: Glucose Point of Care 139 mg/dL (70-110)
[2024-06-18] MEDS: ipratropium-albuterol 3 mL Neb INHALATION (19:57)
[2024-06-18 20:18] LABS: Glucose Point of Care 275 mg/dL (70-110)
[2024-06-18] MEDS: atorvastatin 40 mg Tablet PO (20:51)
[2024-06-18] MEDS: insulin lispro 100 unit/1 mL SUBCUT (21:49)
[2024-06-19] VITALS (8 sets, daily range): BP systolic 121–161; BP diastolic 72–88; PULSE 83–90; RESP 16–18; TEMP 36.7–36.9; O2SAT 94–96
--- NOTE | 2024-06-19 06:00 | USCV_ITS ---
Jung Last Age: 74 Gender: M : 1950 Exam Date: 06/19/2024 02:19 Ordering Phys: Marc Stubbs MD Technologist: NEGRA [place] [facility] [place]: aphasia DM2, quit smoking 2016 Risk Factors: aphasia DM2, quit smoking 2016 Previous Vascular Surgery: None Right Brachial BP: 148 / 84 Left Brachial BP: / Right Left Velocity (cm/s) Spectral Plaque Velocity (cm/s) Spectral Plaque Syst/Diast Broadening Syst/Diast Broadening 75.00/ 16.70 Min Hetro Prox CCA 77.50 / 14.90 Min Hetro 67.20/ 15.40 Min Hetro Mid CCA 62.50 / 11.10 Min Hetro 63.40/ 10.20 Min Davi Distal CCA 48.70 / 11.10 Min Advi 64.60/ 16.70 Mod Hetro Prox ICA 108.00/ 27.40 Mod Hetro 56.30/ 18.10 Min Hetro Mid ICA 57.50 / 22.30 Min Hetro 55.90/ 18.90 Mod Hetro Distal ICA 64.40 / 23.70 Mod Homo 111.30 Min Davi ECA 155.90 Min Davi 1.00 ICA/CCA 2.20 Antegrade Vertebral Antegrade 35.30/ 8.70 cm/s 32.70/ 7.50 cm/s Bi Subclavian Tri 44.10 95.90 FINDINGS Comparison: none available. No significant elevation of systolic or diastolic velocities. Waveforms are normal. Mixture of calcified and noncalcified plaque in the bifurcations. CONCLUSIONS Bilateral ICA stenosis less than 50%. Mild carotid atherosclerosis. Dr. Jaqui Poe DO (Electronically Signed) Final Date: 19 June 2024 07:37 S
[2024-06-19 06:20] LABS: Glucose Point of Care 174 mg/dL (70-110)
[2024-06-19] MEDS: insulin lispro 100 unit/1 mL SUBCUT ×2 (07:27→11:43)
[2024-06-19] MEDS: aspirin 81 mg EC Tablet 162 MG PO (07:27)
[2024-06-19] MEDS: clopidogrel 75 mg Tablet PO (07:27)
[2024-06-19 07:29] LABS: Blood Urea Nitrogen 39 mg/dL (8-23); Calcium 8.4 mg/dL (8.5-10.5); Carbon Dioxide 19 mmol/L (22-29); Chloride 99 mmol/L (98-107); Creatinine Clr Calc Pharmacy 33.1626; Glucose 188 mg/dL (65-115); Osmolality Calculated 296 mOsm/kg (285-295); Sodium 136 mmol/L (136-145)
[2024-06-19 07:33] LABS: Anion Gap 21.9 (5-19); Potassium 3.9 mmol/L (3.5-5.1)
[2024-06-19 07:35] LABS: Estmated Average Glucose 157; Hemoglobin A1C 7.1 % (4.0-6.0)
[2024-06-19] MEDS: ipratropium-albuterol 3 mL Neb INHALATION (08:36)
--- NOTE | 2024-06-19 11:27 | P.DS_ITS ---
Discharge Providers Date of Admission: 06/18/24 11:24 Date of Discharge: June 19, 2024 Attending Provider at Admission: Marc Stubbs Attending Provider at Discharge: Devon Walsh MD Primary Care Provider: Chica Zhao MD Diagnoses at Discharge Discharge Diagnosis (1) Cerebrovascular accident: Status: Acute (2) Type 2 diabetes mellitus: Status: Acute Qualifiers: Chronic kidney disease stage: stage 3 (moderate) Chronic kidney disease stage 3 subtype: stage 3b (GFR 30-44) Diabetes mellitus complication detail: with chronic kidney disease Diabetes mellitus complication status: with kidney complications Diabetes mellitus senior care insulin use: without senior care use Qualified Code(s): E11.22 - Type 2 diabetes mellitus with diabetic chronic kidney disease; N18.32 - Chronic kidney disease, stage 3b (3) Benign essential HTN: Status: Acute (4) Stage 3b chronic kidney disease (CKD): Status: Chronic (5) Prostate cancer: Status: Acute Reason for Visit Reason for Visit: poss stroke Brief History: History as per HPI below Very pleasant 74-year-old gentleman with history of diabetes on oral hypoglycemic, hypertension, former smoker, HLD, CKD, COPD, prostate cancer, noticed difficulty with his vision over the last 2 days and some difficulty with communicating. Denies any numbness or weakness on any 1 side of the body. Denies vertigo. Denies difficulty walking. In ER CT of the head did not show any acute intracranial hemorrhage or edema, findings most consistent with large subacute infarct involving left occipital lobe. Focal decreased sensation right temporal lobe possibly small vessel disease or prior infarct. Mild cerebral atrophy and small vessel disease Hospital Course Hospital Course Patient was admitted to the hospital further evaluation and management of CVA. He was managed as per stroke protocol. Patient continued to work well with PT/OT and speech therapy. Safe discharge plan were discussed in detail with the patient and his family at bedside. They both requested patient to be transferred back home with home health. He has been discharged in hemodynamically stable condition on aspirin, Plavix, statin. His home dose of hydrochlorothiazide has been withheld. He is to check his blood pressures and blood sugar daily at home and maintain a diary and follow-up with a primary care provider within next 2 weeks for further adjustment of medications. He should follow-up with neurology team within next 2 weeks. Physical Exam Const: COMMON NORMALS: patient oriented x3 and alert GENERAL APPEARANCE: cooperative ORIENTATION/CONSCIOUSNESS: Yes awake HENMT: COMMON NORMALS: oropharynx normal Neck/C-Spine: COMMON NORMALS: no JVD Resp: COMMON NORMALS: normal respiratory effort and clear to auscultation bilaterally AUSCULTATION: clear to auscultation bilaterally Cardio: COMMON NORMALS: no JVD, regular rhythm, S1 normal heart sound present, S2 normal heart sound present and No murmurs present (Cardio) RHYTHM: regular rhythm HEART SOUNDS: S1 normal heart sound present and S2 normal heart sound present GI: COMMON NORMALS: Normal to inspection, nondistended, normoactive bowel sounds present, Soft to palpation and non-tender PALPATION: Yes Soft to palpation Extremity: COMMON NORMALS: no joint enlargement and no pedal edema Neuro: COMMON NORMALS: patient oriented x3 and moves all extremities SENSORIUM/ORIENTATION: Yes alert OTHER: He is awake and alert, following directions readily. Without facial droop, no dysarthria. Minimal if any aphasia. No difficulty with tracking resultantly. Visual agosto appear intact but with right side neglect. No upper or lower extremity drift. Sensory exam symmetrical to light touch and temperature. No sensory extinction. FNF intact. Skin: COMMON NORMALS: no rashes or lesions noted GENERAL SKIN EXAM: no rashes or lesions noted Discharge Data Studies Completed and Pending Completed Studies During Hospitalization Category Date Time Status CT head thrombolytic [id number] Stat Cat Scan 06/18/24 08:18 Completed MR head wo con* [id number] Routine MRI 06/18/24 13:21 Completed CV carotid duplex BI* [id number] Routine Ultrasound 06/19/24 06:00 Completed CV. echo w/w bubble cont [id number] Routine Ultrasound 06/18/24 13:21 Completed Pending at discharge Category Date Time Status B12 [Vitamin B12] Routine Lab 06/19/24 11:27 Ordered Basic Metabolic Panel AM LABS Lab 06/20/24 04:00 Ordered Basic Metabolic Panel AM LABS Lab 06/21/24 04:00 Ordered Lipid Profile w/VLDL Routine Lab 06/19/24 11:30 Ordered TIBC [Total Iron Binding Capacity] Routine Lab 06/19/24 11:27 Ordered Thyroid Stimulating Hormone Stat Lab 06/19/24 11:27 Ordered Radiology Impressions Head CT 06/18/24 08:18 IMPRESSION: 1. No acute intracranial hemorrhage or edema. 2. Findings most consistent with a large subacute infarct involving the LEFT occipital lobe. 3. Focal decreased attenuation RIGHT temporal lobe may be small vessel disease or prior infarct. 4. Otherwise mild cerebral atrophy and small vessel disease. Notified Evans Fery DO at 06/18/2024 9:04 AM. Head MRI 06/18/24 13:21 IMPRESSION: 1. Restricted diffusion in the parasagittal temporal lobe involving the cortex and LEFT posterior temporal and occipital lobes most compatible with acute to subacute ischemia. Recommend interval follow-up to assess evolution 2. No hemosiderin. 3. Mild localized mass effect on the LEFT temporal horn and LEFT occipital horn. No hydrocephalus. 4. No other acute findings. Laboratory Results WBC 8.43 10^3/uL (3.29-11.43) 06/18/24 08:23 RBC 5.10 10^6/uL (3.85-5.65) 06/18/24 08:23 Hgb 15.50 g/dL (11.27-16.99) 06/18/24 08:23 Hct 48.1 % (37-53) 06/18/24 08:23 MCV 94.3 fl (82-101) 06/18/24 08:23 MCH 30.4 pg (27-33) 06/18/24 08:23 MCHC 32.2 g/dL (30-55) 06/18/24 08:23 RDW 12.9 % (12.1-15.1) 06/18/24 08:23 Plt Count 277 10^3/cmm (157-399) 06/18/24 08:23 MPV 11.2 fL (7.4-10.4) H 06/18/24 08:23 Neut % (Auto) 69.5 % 06/18/24 08:23 Lymph % (Auto) 18.6 % 06/18/24 08:23 [place] % (Auto) 9.7 % 06/18/24 08:23 Eos % (Auto) 1.4 % 06/18/24 08:23 Baso % (Auto) 0.6 % 06/18/24 08:23 Neut # (Auto) 5.85 10^3/uL (1.8-7.7) 06/18/24 08:23 Lymph # (Auto) 1.6 10^3/uL (0.8-4.8) 06/18/24 08:23 [place] # (Auto) 0.8 10^3/uL (0.2-0.9) 06/18/24 08:23 Eos # (Auto) 0.1 10^3/uL (0.0-0.8) 06/18/24 08:23 Baso # (Auto) 0.1 10^3/uL (0.0-0.1) 06/18/24 08:23 Nucleated RBC % (auto) 0 % 06/18/24 08:23 Nucleated RBCs # 0.0 /100WBC 06/18/24 08:23 PT 12.00 SECONDS (12.1-14.9) L 06/18/24 09:12 INR 0.83 (0.8-1.2) 06/18/24 09:12 APTT 23.3 SECONDS (23.9-36.7) L 06/18/24 09:12 Sodium 136 mmol/L (136-145) 06/19/24 06:22 Potassium 3.9 mmol/L (3.5-5.1) 06/19/24 06:22 Chloride 99 mmol/L (98-107) 06/19/24 06:22 Carbon Dioxide 19 mmol/L (22-29) L 06/19/24 06:22 Anion Gap 21.9 (5-19) H 06/19/24 06:22 BUN 39 mg/dL (8-23) H 06/19/24 06:22 Creatinine 2.3 mg/dL (0.7-1.2) H 06/19/24 06:22 GFR Calculation Not Reportable 06/19/24 06:22 Glucose 188 mg/dL (65-115) H 06/19/24 06:22 POC Glucose 174 mg/dL (70-110) H 06/19/24 06:17 Estimat Average Glucose 157 06/19/24 06:22 Hemoglobin A1c 7.1 % (4.0-6.0) H 06/19/24 06:22 Calculated Osmolality 296 mOsm/kg (285-295) H 06/19/24 06:22 Calcium 8.4 mg/dL (8.5-10.5) L 06/19/24 06:22 Total Bilirubin 0.4 mg/dL (0.15-1.2) 06/18/24 08:54 AST 14 U/L (0-40) 06/18/24 08:54 ALT 12 U/L (0-41) 06/18/24 08:54 Alkaline Phosphatase 50 U/L (40-130) 06/18/24 08:54 Total Protein 7.0 g/dL (6.6-8.7) 06/18/24 08:54 Albumin 4.0 g/dL (3.5-5.2) 06/18/24 08:54 Globulin 3.0 g/dL (1.3-4.6) 06/18/24 08:54 Urine Color Yellow (Yellow) 06/18/24 09:11 Urine Appearance Clear (CLEAR) 06/18/24 09:11 Urine pH 5.0 (5-7) 06/18/24 09:11 Ur Specific [place] 1.023 (1.005-1.030) 06/18/24 09:11 Urine Protein 2+ (Negative) A 06/18/24 09:11 Urine Glucose (UA) 3+ (Normal) H 06/18/24 09:11 Urine Ketones Negative (Negative) 06/18/24 09:11 Urine Blood Negative (Negative) 06/18/24 09:11 Urine Nitrate Negative (Negative) 06/18/24 09:11 Urine Bilirubin Negative (Negative) 06/18/24 09:11 Urine Urobilinogen 0.2 mg/dL (Negative) 06/18/24 09:11 Ur Leukocyte Esterase Negative (Negative) 06/18/24 09:11 Urine RBC 0-2 /hpf (0-2) 06/18/24 09:11 Urine WBC 0-5 /hpf (0-5) 06/18/24 09:11 Ur Squamous Epith Cells 0-5 /hpf (0-5) 06/18/24 09:11 Amorphous Sediment Not Reportable 06/18/24 09:11 Urine Bacteria None seen /hpf (NONE) 06/18/24 09:11 Hyaline Casts 2.87 /lpf 06/18/24 09:11 Urine Opiates Screen Negative ng/mL (Negative) 06/18/24 09:11 Ur Barbiturates Screen Negative ng/mL (Negative) 06/18/24 09:11 Ur Phencyclidine Scrn Negative ng/mL (Negative) 06/18/24 09:11 Ur Amphetamines Screen Negative ng/mL (Negative) 06/18/24 09:11 U Benzodiazepines Scrn Negative ng/mL (Negative) 06/18/24 09:11 Urine Cocaine Screen Negative ng/mL (Negative) 06/18/24 09:11 U Marijuana (THC) Screen Positive ng/mL (Negative) H 06/18/24 09:11 Vitals Last Vital Signs Temp 98.3 F 06/19/24 07:51 Pulse 86 06/19/24 08:41 Resp 16 06/19/24 08:36 BP 137/74 06/19/24 07:51 Pulse Ox 96 06/19/24 08:36 O2 Del Method Room Air 06/19/24 08:36 Discharge Plan Discharge Patient Disposition: Home Condition: Stable Prescriptions: New clopidogrel 75 mg Tablet 75 mg PO DAILY Qty: 30 0RF Continued aspirin 81 mg tablet,delayed release (DR/EC) 81 mg PO DAILY (DME) blood-glucose meter Misc See Rx Instructions .MEDSUPPLY Qty: 1 0RF Rx Instructions: As directed (DME) Blood Glucose Test Strip See Rx Instructions .MEDSUPPLY Qty: 50 5RF Rx Instructions: As directed (DME) lancets 25 gauge misc See Rx Instructions .MEDSUPPLY Qty: 100 5RF Rx Instructions: As directed losartan 50 mg tablet 50 mg PO DAILY Qty: 90 1RF Tradjenta 5 mg tablet 5 mg PO QAM Qty: 100 1RF glimepiride 4 mg Tablet 4 mg PO QAM Rx Instructions: administer with breakfast Spiriva Respimat 2.5 mcg/actuation Mist 2 puff INHALATION DAILY empagliflozin 25 mg Tablet 25 mg PO DAILY albuterol sulfate 90 mcg/actuation Aerosol Powdr Breath Activated 2 inh INHALATION Q4H PRN (Reason: Shortness Of Breath Or Wheezing) sitagliptin [Zituvio] 50 mg Tablet 50 mg PO DAILY atorvastatin 40 mg tablet 40 mg PO QPM Rx Instructions: Take 1 tablet by mouth once daily for 90 days amlodipine 10 mg tablet 10 mg PO DAILY Rx Instructions: Take 1 tablet by mouth once daily Held hydrochlorothiazide 25 mg tablet 25 mg PO DAILY Hold Instructions: Resume on 07/03/24. Rx Instructions: Take 1 tablet by mouth once daily Discharge Orders: Discharge Order (Routine); Ordered 06/19/24 Ordered By: Devon Walsh Referrals: [facility] [Provider Group] - 2 weeks (We have notified your physician's clinic of the need for a follow-up appointment to be scheduled. If you have not heard from them within the next 2 business days, please call them directly. ) Chica Zhao MD [Primary Care Provider] - 4-7 days (We have notified your physician's clinic of the need for a follow-up appointment to be scheduled. If you have not heard from them within the next 2 business days, please call them directly. ) Discharge Diet: Cardiac and Diabetic Discharge Activity: Resume usual activity and Increase activity as tolerated Patient Instructions: Clopidogrel (By mouth), Ischemic Stroke (GEN), Opioid Safety, Pain Management, Stroke Stoplight Activity Restrictions/Additional Instructions: Please follow-up with your primary provider within next 1 week. Follow-up with neurology team in [address] until you have been cleared by neurology team or your primary care provider. Continue with aspirin and statin as before. Plavix has been added to your medication list. Check your blood pressure daily at home and maintain a blood pressure diary. Goal blood pressures less than 140/90 mmHg. Continue your home dose of amlodipine and losartan as before. Take hydrochlorothiazide only if your blood pressures are more than 140/90 mmHg. Check your fasting supervisory it specialist blood sugars daily at home and maintain a blood sugar diary. Follow-up with a primary care provider on set appointment with your blood pressure and blood sugar diary. Discharge Attestations Time Spent in Discharge Care*: greater than 30 min Specific Discharge Activities: educating patient, educating and/or supporting family/caregiver, discussing with pcp/other providers, discussing with home health care case manager/social workers/dc planners, documenting/other paperwork and evaluating patient/reviewing data Status at Discharge: Cognitive status at discharge: cognitively intact , Behavioral status at discharge: cooperative , Functional status at discharge: uses cane/walker , Overall status at discharge: patient is progressing back to baseline Quality Metrics Clinical Quality Measures [ No reported AMI, CVA or VTE this stay] Coding Level of Care Code 55723 Total time (in minutes) for Discharge: 60 Diagnoses Cerebrovascular accident I63.9 Type 2 diabetes mellitus with stage 3b chronic kidney disease, without long-term current use of insulin E11.22; N18.32 Chronic kidney disease stage: stage 3 (moderate) Chronic kidney disease stage 3 subtype: stage 3b (GFR 30-44) Diabetes mellitus complication detail: with chronic kidney disease Diabetes mellitus complication status: with kidney complications Diabetes mellitus long term acute care registered nurse insulin use: without senior care use Benign essential HTN I10 Stage 3b chronic kidney disease (CKD) N18.32 Prostate cancer C61
[2024-06-19 11:32] LABS: Glucose Point of Care 293 mg/dL (70-110)
[2024-06-19 12:11] LABS: Cholesterol 182 mg/dL (0-200); HDL Cholesterol 35 mg/dL (60-100); Iron 55 ug/dL (59-158); LDL Cholesterol Calculated 114 mg/dL (50-129); Percent Saturation 21.3 % (20-50); Thyroid Stimulating Hormone 3.19 uIU/mL (0.27-4.20); Total Iron Binding Capacity 258 mcg/dl; Triglycerides 164 mg/dL (0-150); Unsaturated Iron Binding 203 ug/dL (112-347); VLDL Cholestrol Calculation 33 mg/dL (0-30); Vitamin B12 678 pg/mL (232-1245)
--- NOTE | 2024-06-19 12:39 | PC.NURSE ---
Discharge instructions given to pt and significant other. NO questions or concerns voiced at this time. To private vehicle via wheelchair with all belongings.
--- NOTE | 2024-06-19 14:54 | PC.NURSE ---
life skills coordinator volunteer rounding: patient given stroke education book.
== END 2024-06-19 12:44 | disposition home or self-care (01) | DRG 66 ==
LOC: ER 10:26 → MEDSURG 11:24
PROVIDERS: Admitting Provider Internal Medicine; Emergency Provider Family Medicine; PCP Family Medicine; Visit Provider Student in an Organized Health Care Education/Training Program
DX: I63.9 Cerebral infarction, unspecified (principal); H53.9 Unspecified visual disturbance; E11.22 Type 2 diabetes mellitus with diabetic chronic kidney disease; I12.9 Hypertensive chronic kidney disease with stage 1 through stage 4 chronic kidney disease, or unspecified chronic kidney disease; N18.32 Chronic kidney disease, stage 3b; Z79.84 Long term (current) use of oral hypoglycemic drugs; C61 Malignant neoplasm of prostate; E78.5 Hyperlipidemia, unspecified; J44.9 Chronic obstructive pulmonary disease, unspecified; Z87.891 Personal history of nicotine dependence; Z79.82 Long term (current) use of aspirin
CPT/HCPCS: 36415; 36416; 70450; 70551; 80048; 80053; 80061; 80306; 81001; 82607; 82962; 83036; 83540; 83550; 84443; 85025; 85610; 85730; 92523; 92610; 93005; 93880; 94640; 96372; 97116; 97161; 99285; C8929; J1650; J1815

== ENCOUNTER → 2024-07-01 08:26 | Outpatient (BNVA) | payer OTHER, SELFPAY | PROVIDERS: PCP Family Medicine; Referring Provider Family Medicine; Visit Provider Specialist | DX: I63.532 Cerebral infarction due to unspecified occlusion or stenosis of left posterior cerebral artery (principal) | CPT/HCPCS: 99205 ==

== ENCOUNTER 2024-07-10 08:10 | Outpatient (CLI) | payer OTHER, SELFPAY ==
--- NOTE | 2024-07-10 09:15 | MR_ITS ---
WS: [id number] MRI BRAIN WITHOUT CONTRAST HISTORY: I63.9 - Cerebral infarction, unspecified COMPARISON: CT head 06/18/2024, MRI 06/18/2024 TECHNIQUE: Diffusion imaging, multiplanar T1, T2 and FLAIR imaging obtained. Resolving diffusion abnormality involving the LEFT occipital and parasagittal temporal lobe consistent with an evolving infarct. No new area of diffusion abnormality. No associated hemorrhage. No midline shift from the infarct. In the area of the subacute infarct there is increasing T1 serpiginous single consistent with cortical laminar necrosis greatest noted towards the parahippocampal gyrus. Additional small vessel disease in the RIGHT posterior temporal lobe. Ventricles and extra-axial spaces are normal. No inferior displacement of cerebellar tonsils. The sella turcica and pituitary gland are unremarkable. Dural venous sinuses and [place] demonstrate no abnormality on this unenhanced studies. Paranasal sinuses: Small amount of mucoperiosteal thickening in the LEFT anterior ethmoid air cells. No air-fluid levels. Mastoid air cells: Normal. Calvarium and scalp: Intact. MR/MR head wo con* [id number] IMPRESSION: 1. Since 06/18/2024 there has been expected normal evolution of the infarct inv olving the LEFT temporal and occipital lobes extending to the parahippocampal g yrus. Mild associated cortical laminar necrosis. No hemorrhage. 2. No new infarct. 3. Improved localized edema and less mass effect at the LEFT temporal and LEFT occipital horns.
--- NOTE | 2024-07-10 10:00 | MR_ITS ---
WS: [id number] MRA ANGIOGRAPHY [place] HISTORY: I63.9 - Cerebral infarction, unspecified COMPARISON: None available. TECHNIQUE: 3-D MR angiography is performed of the [place]. All images are reviewed including source images. Distal vertebral and basilar arteries are intact with no significant stenosis or plaque. Posterior cerebral arteries are normal course and caliber. Posterior communicating arteries are both patent. Intracranial portion of the internal carotid arteries are normal course and caliber. No significant atherosclerosis, stenosis or aneurysm identified. Middle and anterior cerebral arteries are both patent with no significant disease. Anterior communicating artery is also normal. MR/MR angio head wo con [id number] IMPRESSION: Normal MRA [place].
== END 2024-07-10 08:11 | disposition home or self-care (01) ==
PROVIDERS: PCP Family Medicine; Visit Provider Specialist
DX: I63.9 Cerebral infarction, unspecified (principal); R93.0 Abnormal findings on diagnostic imaging of skull and head, not elsewhere classified
CPT/HCPCS: 70544; 70551

== ENCOUNTER → 2024-10-23 07:44 | Outpatient (BNVA) | payer OTHER, SELFPAY | PROVIDERS: PCP Family Medicine; Referring Provider Family Medicine; Visit Provider Specialist | DX: I35.0 Nonrheumatic aortic (valve) stenosis (principal); I63.532 Cerebral infarction due to unspecified occlusion or stenosis of left posterior cerebral artery; I63.9 Cerebral infarction, unspecified | CPT/HCPCS: 99215 ==

== ENCOUNTER 2024-11-05 08:59 | Outpatient (CLI) | payer OTHER, SELFPAY ==
--- NOTE | 2024-11-05 09:30 | MR_ITS ---
WS: [id number] MRA neck without gadolinium enhancement INDICATION: Cerebral ischemia. Infarct. TECHNIQUE: MRA of the neck without gadolinium enhancement. Patient reports history of contrast allergy. Contrast was deferred. FINDINGS: RIGHT: RIGHT common carotid artery is patent. No significant RIGHT ICA stenosis. RIGHT ICA is patent to the skull base. LEFT: LEFT common carotid artery is patent. No significant LEFT ICA stenosis. LEFT ICA is patent to the skull base. Codominant and patent vertebral arteries bilaterally. MR/MR angio neck wo con [id number] IMPRESSION: 1. No significant cervical ICA stenosis. 2. Codominant and patent vertebral arteries bilaterally.
== END 2024-11-05 09:00 | disposition home or self-care (01) ==
LOC: RAD 09:00
PROVIDERS: PCP Family Medicine; Visit Provider Specialist
DX: I63.532 Cerebral infarction due to unspecified occlusion or stenosis of left posterior cerebral artery (principal)
CPT/HCPCS: 70547

== ENCOUNTER → 2024-11-27 12:50 | Outpatient (BNVA) | payer OTHER, SELFPAY | PROVIDERS: PCP Family Medicine; Visit Provider Internal Medicine | DX: I35.0 Nonrheumatic aortic (valve) stenosis (principal); E11.22 Type 2 diabetes mellitus with diabetic chronic kidney disease; N18.32 Chronic kidney disease, stage 3b; Z79.84 Long term (current) use of oral hypoglycemic drugs; Z87.891 Personal history of nicotine dependence; Z86.73 Personal history of transient ischemic attack (TIA), and cerebral infarction without residual deficits; Z79.82 Long term (current) use of aspirin; R07.9 Chest pain, unspecified | CPT/HCPCS: 93005; 99204 ==

== ENCOUNTER 2024-12-10 08:28 | Outpatient (CLI) | payer OTHER, SELFPAY ==
[2024-12-10 08:55] LABS: Hematocrit 43.2 % (37-53); Hemoglobin 14.50 g/dL (11.27-16.99); Mean Corpuscular HGB Conc 33.6 g/dL (30-55); Mean Corpuscular Hemoglobin 29.6 pg (27-33); Mean Corpuscular Volume 88.2 fl (82-101); Nucleated Red Blood Cells % 0 %; Platelet Count 320 10^3/cmm (157-399); Red Blood Count 4.90 10^6/uL (3.85-5.65); White Blood Count 8.21 10^3/uL (3.29-11.43)
[2024-12-10 09:20] LABS: Albumin Level 4.0 g/dL (3.5-5.2); Blood Urea Nitrogen 43 mg/dL (8-23); Calcium 9.0 mg/dL (8.5-10.5); Carbon Dioxide 18 mmol/L (22-29); Chloride 102 mmol/L (98-107); Glucose 214 mg/dL (65-115); Sodium 137 mmol/L (136-145)
[2024-12-10 09:24] LABS: Anion Gap 21.5 (5-19); Potassium 4.5 mmol/L (3.5-5.1)
[2024-12-10 09:26] LABS: Creatinine Urine, Random 103 mg/dL (39-259)
[2024-12-10 09:27] LABS: Microalbum Creatinine Ratio Ur 252 mg/dL (0-20)
== END 2024-12-10 08:29 | disposition home or self-care (01) ==
LOC: LAB 08:33
PROVIDERS: PCP Family Medicine; Visit Provider Registered Nurse
DX: N18.32 Chronic kidney disease, stage 3b (principal); R80.9 Proteinuria, unspecified
CPT/HCPCS: 36415; 80069; 82044; 85025

== ENCOUNTER 2024-12-29 09:21 | Outpatient (CLI) | payer OTHER, SELFPAY ==
--- NOTE | 2024-12-29 09:15 | USCV_ITS ---
Jung Last Age: 74 Gender: M : 1950 Exam Date: 12/29/2024 09:34 Ordering Phys: Kevan Jaime M.D ([email or web address]) Technologist: STARR Exam Location: [facility] – [place] Indication: BP: 130 / 62 HR: 69 Rhythm: Sinus Technical Quality: Adequate MEASUREMENTS (Male / Female) Normal Values 2D ECHO LV Diastolic Diameter PLAX 4.5 cm 4.2 - 5.9 / 3.9 - 5.3 cm IVS Diastolic Thickness 1.1 cm 0.6 - 1.0 / 0.6 - 0.9 cm IVS Systolic Thickness 1.9 cm LVPW Diastolic Thickness 1.3 cm 0.6 - 1.0 / 0.6 - 0.9 cm LVPW Systolic Thickness 1.8 cm LVOT Diameter 2.0 cm LV Ejection Fraction 2D Teich 66.0 % LV Ejection Fraction MOD 4C 63.6 % LV Ejection Fraction MOD 2C 54.0 % LV Ejection Fraction 2C AL 53.9 % LA Diameter 3.1 cm RA Systolic Volume 4C AL 62.2 ml RA Systolic Volume 4C MOD 61.1 ml LA Sys Volume AL 89.5 cm cubed LA Sys Volume Index AL 42.4 cm cubed/m squared IVC Diameter 2.3 cm M-MODE LA Ao Ratio MM 1.0 AV Cusp Separation MM 0.8 cm DOPPLER AV Peak Velocity 269.3 cm/s LVOT Peak Velocity 115.0 cm/s AV Area Cont Eq vti 1.6 cm squared AV Area Cont Eq pk 1.4 cm squared MV Peak Velocity 104.0 cm/s MV Area PHT 2.7 cm squared Mitral E to A Ratio 0.6 TR Peak Velocity 197.0 cm/s TR Peak Gradient 15.5 mmHg TV Peak E Velocity 63.0 cm/s PV Peak Velocity 85.0 cm/s FINDINGS Left Ventricle Normal left ventricular size, systolic function and wall thickness, with no regional wall motion abnormalities. Left ventricular ejection fraction is estimated at 60 %. Grade I/IV diastolic dysfunction (abnormal relaxation filling pattern), normal to mildly elevated filling pressures. Right Ventricle The right ventricle is normal in size and function. Right Atrium The right atrium is normal in size. Left Atrium The left atrium is normal in size. Mitral Valve Mildly thickened mitral valve. No mitral valve stenosis. Trace mitral valve regurgitation. Aortic Valve Severe aortic valve calcification. Moderate aortic valve stenosis, mean gradient 14.3 mmHg, BRAEDEN 1.6 cm squared. Trace aortic valve regurgitation. Tricuspid Valve Structurally normal tricuspid valve without significant stenosis or regurgitation. Pulmonary artery systolic pressure is normal. Pulmonic Valve Structurally normal pulmonic valve without significant stenosis. There is no pulmonic regurgitation. Pericardium Normal pericardium without effusion. Aorta Normal ascending aorta dimension. IVC The inferior vena cava appears normal. CONCLUSIONS Normal left ventricular size, systolic function and wall thickness, with no regional wall motion abnormalities. Left ventricular ejection fraction is estimated at 60 %. Grade I/IV diastolic dysfunction (abnormal relaxation filling pattern), normal to mildly elevated filling pressures. Severe aortic valve calcification. Moderate aortic valve stenosis, mean gradient 14.3 mmHg, BRAEDEN 1.6 cm squared. Trace aortic valve regurgitation. Mildly thickened mitral valve. No mitral valve stenosis. Trace mitral valve regurgitation. There is no pericardial effusion. Right atrial pressure is around 5 mm of mercury. Leora Alvarenga MD (Electronically Signed) Final Date: 29 December 2024 13:42 S
== END 2024-12-29 09:22 | disposition home or self-care (01) ==
LOC: RAD 09:22
PROVIDERS: PCP Family Medicine; Visit Provider Internal Medicine
DX: I35.0 Nonrheumatic aortic (valve) stenosis (principal); I51.89 Other ill-defined heart diseases; I35.2 Nonrheumatic aortic (valve) stenosis with insufficiency; I34.0 Nonrheumatic mitral (valve) insufficiency
CPT/HCPCS: 93306